=== PATIENT | female | born 1955 | race African-American/Black ===

== ENCOUNTER 2022-01-09 10:29 | Emergency (ER) | payer MEDICAID ==
[~2022-01-09] VITALS: Ht 170.2 cm; Wt 62.0 kg
[2022-01-09 10:36] VITALS: BP 182/107
== END 2022-01-09 11:26 | disposition home or self-care (01) ==
LOC: ER 11:15
DX: Z48.02 Encounter for removal of sutures (principal); I10 Essential (primary) hypertension
CPT/HCPCS: 99281; Z7610